=== PATIENT | female | born 1945 | race Caucasian/White ===

== ENCOUNTER → 2017-06-10 | Outpatient (CLI) | payer MEDICARE ==
[~2017-06-10] MED LIST: ACETAMINOPHEN PO; ACETAMINOPHEN325 MG PO; ACIPHEX20 MG; ACIPHEX20 MG PO; ALBUTEROL INH; ALBUTEROL17 G1 INH; ALBUTEROL17 GM INH; ALPRAZOLAM PO; AMBIEN CR PO; AMBIEN PO; ANUCORT-HC25 MG/SUPP PR; ASPIRIN PO; ASPIRIN81 MG PO; ASTELIN137 MCG INH; ATENOLOL PO; AVELOX400 M1 PO; BENADRYL; BENTYL20 M1 PO; BENZONATATE PO; BROMPHED DM PO; BUMEX PO; BUMEX2 MG PO; CARAFATE1 G PO; CARDIZEM PO; CARTIA XT PO; CELEXA PO; CIPRO PO; CIPRO XR 500 M500 MG PO; CLARITIN D PO; COLACE PO; COLACE50 MG PO; COUMADIN; COUMADIN PO; COUMADIN2.5 MG PO; COUMADIN5 MG PO; DEXILANT60 MG PO; DILT-CD120 MG PO; DILT-XR180 M1 PO; DIOVAN HCT 160/1 TAB; DIOVAN HCT 80/11 TAB PO; DURAGESIC25 MCG EXT; FLAGYL PO; FLEXERIL PO; FLONASE16 GM; FLUOCINONIDE60 ML OT; FOLIC ACID PO; HUMIBID L.1 TAB.SR . PO; IMDUR-ER30 MG PO; IRON325 ( 651 PO; KCL PO; KLOR-CON PO; LASIX; LASIX PO; LEVAQUIN PO; LEVAQUIN750 MG PO; LEXAPRO PO; LOPERAMIDE HCL2 M1 PO; LORATADINE PO; LOVENOX SUBQ; MAG-OXIDE400 MG; MAG-OXIDE400 MG PO; MAPAP ARTHRITI650 M1 PO; MELATONIN2.5 MG PO; MERREM500 MG INJ; MICRO-K10 MEQ PO; MIRALAX17 GM PO; MULTI-VITAMIN1 EAC1; NILSTAT PO; NITROGLYGERIN0.4 MG SL; NORCO 5/325 TAB1 TAB PO; OXYGEN; PERCOCET PO; PERCOCET10 PO; PERCOCET5/325 PO; PERCOCET7.5 PO; PLAQUENIL200 MG PO; PLATEL; PLAVIX PO; PLETAL100 MG PO; PLETAL50 MG; PLETAL50 MG PO; PREDNISONE PO; PREDNISONE1 MG; PRILOSEC PO; PROAIR HFA8.5 GM IH; PROAIR INHALER INH; PROTONIX PO; PV NEURO VITE T1 TAB PO; REGLAN10 MG PO; ROBAXIN PO; SINGULAIR PO; SYMBICORT INH; TYLENOL ARTHRITES PO; VICODIN 5/500 T1 TAB; VITAMIN B-121000 MCG PO; VITAMIN B-12500 MCG PO; VITAMIN D1000 UNI1 PO; VITAMIN D400 UNI1 PO; WELLBUTRIN PO; WELLBUTRIN SR150 MG PO; ZAROXYLYN PO; ZYLOPRIM100 MG PO; ZYRTEC; [UNRECOGNIZED DRUG - OTHER] INH; [UNRECOGNIZED DRUG - OTHER] PO; [UNRECOGNIZED DRUG - OTHER] PO; asmanex
--- NOTE | ~2017-06-10 | CR279 ---
[facility] A Service of [facility] RADIOLOGY TEXT RESULTS PATIENT: JASMEET ZAMORA LOCATION: [facility] : 43 UNIT #: [id number] AGE: [address]: Melia Stone MD SEX: F ORDER DR: [id number] [address] [address] [id number] O MR#: [id number] Acc #: [id number] NAME: JASMEET ZAMORA. : 1945 SEX: F STUDY DATE/TIME: 06/10/2017 10:45 UNIT: [facility] ROOM: STUDY DESCRIPTION: CR Wrist 2 View Rt Attending Physician: Melia Stone M.D. Ordering Physician: Melia Stone M.D. Primary Care Physician: Melia Stone M.D. MEDICAL IMAGING REPORT This report is preliminary unless electronic signature is present. EXAM 3 views of the right wrist. DATE 06/10/2017 HISTORY A 72-year-old female with complaints of right wrist pain after falling few months ago. COMPARISON None. FINDINGS No acute displaced fractures identified. Osteopenic changes are present. There are chondrocalcinosis changes within the triangular fibrocartilage. There is advanced degenerative change of the trapezium - scaphoid junction with loss of normal joint space and articular sclerosis. Tiny corticated chronic calcification seen at the volar surface of the wrist. IMPRESSION 1. No acute right wrist findings. 2. 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 3. Calcification of the triangular fibrocartilage which can be seen in cases of CPPD arthropathy. Dictated by... Yue Richard M.D. THIS IS AN ELECTRONICALLY VERIFIED REPORT Yue Richard M.D. at 06/11/2017 12:11 PM LLH/rnr [facility] A Service of [facility] RADIOLOGY TEXT RESULTS PATIENT: JASMEET ZAMORA LOCATION: [facility] : 43 UNIT #: [id number] AGE: [address]: Melia Stone MD SEX: F ORDER DR: TD: 06/10/2017 17:24 JOB #: [id number] MEDICAL IMAGING REPORT Page 1 of 1
--- NOTE | ~2017-06-10 | CR230 ---
[facility]. [facility] A Service of [facility] RADIOLOGY TEXT RESULTS PATIENT: JASMEET ZAMORA LOCATION: [facility] : 43 UNIT #: [id number] AGE: [address]: Melia Stone MD SEX: F ORDER DR: [id number] [address] [address] [id number] O MR#: [id number] Acc #: [id number] NAME: JASMEET ZAMORA. : 1945 SEX: F STUDY DATE/TIME: 06/10/2017 10:45 UNIT: [facility] ROOM: STUDY DESCRIPTION: CR Shoulder Min 2 View Rt Attending Physician: Melia Stone M.D. Ordering Physician: Melia Stone M.D. Primary Care Physician: Melia Stone M.D. MEDICAL IMAGING REPORT This report is preliminary unless electronic signature is present. EXAM 3 views right shoulder. DATE 06/10/2017 HISTORY Right shoulder pain for months after falling. COMPARISON None. FINDINGS No acute fracture or joint dislocation is seen. Advanced degenerative changes are demonstrated with the right shoulder with loss of normal glenohumeral joint space, articular surface subchondral cystic change and articular sclerosis, and undersurface spurring of the humeral head. No acromioclavicular or coracoclavicular separation is identified. Imaged right lung appears free of acute airspace disease, and no displaced right rib fracture is evident. IMPRESSION Advanced degenerative change of the right glenohumeral joint. No acute findings. Dictated by... Yue Richard M.D. THIS IS AN ELECTRONICALLY VERIFIED REPORT Yue Richard M.D. at 06/11/2017 12:11 PM LLH/rnr [facility] A Service of [facility] RADIOLOGY TEXT RESULTS PATIENT: JASMEET ZAMORA LOCATION: [facility] : 43 UNIT #: [id number] AGE: [address]: Melia Stone MD SEX: F ORDER DR: TD: 06/10/2017 17:22 JOB #: [id number] MEDICAL IMAGING REPORT Page 1 of 1
== END | disposition home or self-care (01) ==
LOC: SRAD 10:29
DX: M25.531 Pain in right wrist (principal); M25.511 Pain in right shoulder; M19.011 Primary osteoarthritis, right shoulder; M19.031 Primary osteoarthritis, right wrist; M94.8X8 Other specified disorders of cartilage, other site
CPT/HCPCS: 73030; 73100

== ENCOUNTER → 2017-06-15 | Outpatient (CLI) | payer MEDICARE ==
--- NOTE | ~2017-06-15 | MR17 ---
[facility]. [facility] A Service of [facility] RADIOLOGY TEXT RESULTS PATIENT: JASMEET ZAMORA LOCATION: [facility] : 43 UNIT #: [id number] AGE: [address]: Melia Stone MD SEX: F ORDER DR: [id number] [address] [address] [id number] O MR#: [id number] Acc #: [id number] NAME: JASMEET ZAMORA : 1945 SEX: F STUDY DATE/TIME: 06/15/2017 9:40 UNIT: [facility] ROOM: STUDY DESCRIPTION: MR Brain WWo Contrast Attending Physician: Melia Stone M.D. Referring Physician: Melia Stone M.D. Ordering Physician: Melia Stone M.D. Primary Care Physician: Melia Stone M.D. MRI CENTER REPORT This report is preliminary unless electronic signature is present. EXAM MRI of the brain with and without contrast dated 06/15/[address] head without contrast dated 11/13/2009 HISTORY Increasing headaches, dizziness and short-term memory loss. It is worsening in the last 2 months. FINDINGS Multisequence multiplanar imaging of the brain was obtained with and without contrast. GFR measured 54. 15 mL of MultiHance was administered intravenously. Age-appropriate parenchymal volume is seen. There are a few nonenhancing hyperintense T2-signal lesions in the brain involving the white matter. Subtle increased T2 signal is also noted along the medial bilateral temporal lobes, at and just above the uncus on the STIR sequence (series 6, image 11). It is not correlated in the other sequences. Vascular flow voids of the major cerebral arteries and dural venous sinuses are not occluded in these thicker slices. The increased T2 STIR sequence noted in the region of bilateral middle cerebellar peduncles are artifactual (face and clothing artifact). No acute stroke, enhancing mass, mass effect, midline shift or hydrocephalus. Mild nasal septal deviation is noted to the left. Status post bilateral cataract surgery. Paranasal sinuses and mastoid air cells are well-aerated. Thick slices through the sella with the pituitary gland, pineal region are unremarkable. Degenerative changes are noted in the cervical spine. IMPRESSION 1. Minimal hyperintense T2 signal nonspecific lesions are noted in the white matter, likely related to minimal chronic microvascular ischemic change or migraine based on age and statistics. [facility]. [facility] A Service of [facility] RADIOLOGY TEXT RESULTS PATIENT: JASMEET ZAMORA LOCATION: [facility] : 43 UNIT #: [id number] AGE: [address]: Melia Stone MD SEX: F ORDER DR: 2. There is increased T2 STIR signal in the medial aspect of bilateral temporal lobes close to the region of the uncus and within it. It is not correlated in the other sequences well and it is of uncertain clinical significance in this patient without any history of seizures or infection like herpes. There is no edema, hemorrhage or enhancement in this region. Nonspecific. 3. No enhancing intracranial lesions. Dictated by... Karly Wall M.D. THIS IS AN ELECTRONICALLY VERIFIED REPORT Karly Wall M.D. at 06/16/2017 4:43 PM ANNIKA/yany TD: 06/16/2017 12:35 JOB #: [id number] MRI CENTER REPORT Page 1 of 1
[2017-06-15 12:45] LABS: POC - CREATININE 1.05 mg/dL (0.44-1.03)
== END | disposition home or self-care (01) ==
LOC: SMRI 09:07
PROVIDERS: Internal Medicine
DX: R51 Headache (principal); R41.3 Other amnesia; R90.89 Other abnormal findings on diagnostic imaging of central nervous system
CPT/HCPCS: 70553; 82565; A9581